=== PATIENT | female | born 1955 | race Caucasian/White ===

== ENCOUNTER 2020-03-06 16:29 | Emergency (ER) | payer MEDICARE ==
[~2020-03-06] VITALS: Ht 170.2 cm; Wt 97.5 kg
[2020-03-06] MEDS ORDERED: IBUPROFEN 600 MG TAB PO STA (16:45)
[2020-03-06] MEDS ORDERED: ACETAMINOPHEN 325 MG TAB PO ONE (16:45)
== END 2020-03-06 18:00 | disposition home or self-care (01) ==
LOC: ER 16:41
DX: M25.531 Pain in right wrist (principal); S52.591A Other fractures of lower end of right radius, initial encounter for closed fracture; W01.0XXA Fall on same level from slipping, tripping and stumbling without subsequent striking against object, initial encounter; Y93.01 Activity, walking, marching and hiking; Y99.0 Civilian activity done for income or pay; E11.9 Type 2 diabetes mellitus without complications
CPT/HCPCS: 99283